=== PATIENT | female | born 1985 | race Caucasian/White ===

== ENCOUNTER 2018-01-03 06:40 | Emergency (ER) | payer SELFPAY ==
[2018-01-03] MEDS ORDERED: MORPHINE 4 MG/ML SYR ONE (07:16)
[2018-01-03] MEDS ORDERED: NA CHLORIDE 0.9% 1,000 ML ONE (07:17)
[2018-01-03] MEDS ORDERED: DIPHENHYDRAMINE 50 MG/ML VIAL ONE (07:17)
[2018-01-03] MEDS ORDERED: ONDANSETRON 4 MG/2 ML VIAL ONE (07:17)
[2018-01-03 07:19] LABS: Absolute Lymphocytes (CBC) 3.2 K/uL (0.7-4.9); Absolute Monocytes 0.6 K/uL (0.1-1.3); Absolute Neutrophil 3.3 K/uL (1.8-8.0); Basophils % 0.6 % (0-1.3); Eosinophils % 4.5 % (0-4.4); Hematocrit 40.7 % (36.0-45.0); Lymphocytes % 43.1 % (15.3-44.8); MCH 33.7 pg (27.0-35.0); MCV 98.8 fL (80-100); MPV 9.8 fL (7.6-11.3); Monocytes % 7.5 % (3.3-12.3); RBC Red Blood Cell Count 4.12 M/uL (3.86-4.86)
[2018-01-03] MEDS ORDERED: FENTANYL CITR 100 MCG/2 ML ONE (07:25)
[2018-01-03 07:42] LABS: ALT/SGPT 11 U/L (12-78); AST/SGOT 11 U/L (15-37); Albumin 3.9 g/dL (3.4-5.0); Alkaline Phosphatase 55 U/L (45-117); Amylase Level 28 U/L (25-115); BUN Blood Urea Nitrogen 10 mg/dL (7-18); Bicarbonate 26 mmol/L (21-32); Bilirubin Direct 0.1 mg/dL (0-0.2); Bilirubin Total 0.3 mg/dL (0.2-1.0); Glucose Level 92 mg/dL (74-106); Lipase 146 U/L (73-393); Potassium 3.7 mmol/L (3.5-5.1); Protein, Total 6.8 g/dL (6.4-8.2); Sodium Level 142 mmol/L (136-145)
[2018-01-03 09:24] LABS: Urine Bacteria <20 /HPF (<20); Urine RBC <5 /HPF (NONE SEEN)
[2018-01-03 09:25] LABS: Urine Culture Reflex Order NOT NEEDED
--- NOTE | 2018-01-03 09:49 | RAD REPORT ---
EXAM DESCRIPTION: CT - Abdomen Pelvis W Contrast - 01/03/2018 9:30 am CLINICAL HISTORY: Abdominal pain, constipation, back pain, history of cervical carcinoma COMPARISON: CT study November 2013 TECHNIQUE: Biphasic, helical CT imaging of the abdomen and pelvis was performed following 100 ml non -ionic IV contrast. Oral contrast was given. All CT scans are performed using dose optimization technique as appropriate and may include automated exposure control or mA/KV adjustment according to patient size. FINDINGS: No suspicious findings in the lung bases. The liver, spleen, and pancreas show no suspicious findings. Mild periportal edema pattern is present . No biliary tree dilatation. Gallbladder is not dilated. Gallstones can be occult. Symmetric renal function is seen with no hydronephrosis or suspicious renal mass. No pyelonephritis o r acute renal parenchymal process. Urinary bladder is unremarkable. Tampon is in place. Uterus and ov myranda show no suspicious findings. No gastric dilatation or wall thickening. No dilated small bowel loops. There is no appendicitis. No acute process of the colon seen. CT imaging cannot fully assess the colon. No free air or pneumatosis. Trace amounts of free fluid in the cul-de-sac are well within physiologi c limits. No abnormal mesenteric adenopathy. No hernia, mass or bulky lymphadenopathy. No adrenal ab normality. No suspicious bony findings. IMPRESSION: No appendicitis or surgically emergent finding. Assessment of the colon is limited. No acute GI process identified. No acute or BROILER CHEF OR COOK finding. No acute gallbladder or biliary tree finding. A minimal periportal edema pattern is present. This is nonspecific.
[2018-01-03] MEDS ORDERED: CEFTRIAXONE/SWI 1gm 1 GM/10 ML SYR ONE (11:16)
--- NOTE | 2018-01-03 11:37 | ER ---
Nurse's Notes [facility] Name: Marlene Bruno Age: 32 yrs Sex: Female : 1985 Arrival Date: 01/03/2018 Time: 06:42 Bed 6 Private MD: Diagnosis: Abdominal and pelvic pain Presentation: 01/03 06:50 Presenting complaint: Patient states: "I've been constipated for a week and I can't lp1 push anymore"; States pain to lower back, abdomen; States hx of constipation, denies using any OTC medications; concerned about abnormal vaginal bleeding after menstrual cycle. Transition of care: patient was not received from another setting of care. Onset of symptoms was January 03, 2018. Risk Assessment: Do you want to hurt yourself or someone else? Patient reports no desire to harm self or others. Initial Sepsis Screen: Does the patient meet any 2 criteria? No. Patient's initial sepsis screen is negative. Does the patient have a suspected source of infection? No. Patient's initial sepsis screen is negative. Care prior to arrival: None. 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 - Social history:: Smoking status: Patient uses tobacco products, smokes one pack cigarettes per day. - Ebola Screening: : No symptoms or risks identified at this time. Screenin:53 Abuse screen: Denies threats or abuse. Denies injuries from another. Nutritional lp1 screening: No deficits noted. Tuberculosis screening: No symptoms or risk factors identified. Fall Risk None identified. Assessment: 06:57 General: Appears in no apparent distress. uncomfortable, Behavior is cooperative, aa1 appropriate for age, restless. Pain: Complains of pain in back and abdomen Pain began 1 week ago. Neuro: Level of Consciousness is awake, alert, obeys commands, Oriented to person, place, time, situation, Moves all extremities. Full function Gait is steady. Respiratory: Airway is patent Respiratory effort is even, unlabored, Respiratory pattern is regular, symmetrical. GI: Abdomen is non-distended, Bowel sounds present X 4 quads. Abd is soft X 4 quads Abdomen is tender to palpation X 4 quads. Reports lower abdominal pain, upper abdominal pain, constipation. : Reports vaginal bleeding that is. EENT: No signs and/or symptoms were reported regarding the EENT system. Derm: Skin is intact, is healthy with good turgor, Skin is pink, warm \\T\\ dry. Musculoskeletal: Circulation, motion, and sensation intact. Capillary refill < 3 seconds. 07:11 General: Appears in no apparent distress. uncomfortable, slender, Behavior is sv cooperative, appropriate for age, restless. Pain: Complains of pain in low back area and abdomen Pain currently is 10 out of 10 on a pain scale. Is continuous. Neuro: Level of Consciousness is awake, alert, obeys commands, Oriented to person, place, time, situation, Moves all extremities. Full function Speech is normal. Respiratory: Respiratory effort is even, unlabored, Respiratory pattern is regular, symmetrical. GI: Abdomen is flat, non-distended, Reports lower abdominal pain, upper abdominal pain, constipation, nausea. Derm: Skin is pink, warm \\T\\ dry. Musculoskeletal: Range of motion: intact in all extremities. 07:44 Reassessment: pt finished oral contrast, CT notified. iw 08:48 Reassessment: Patient appears in no apparent distress at this time. Patient and/or sv family updated on plan of care and expected duration. Pain level reassessed. Patient is alert, oriented x 3, equal unlabored respirations, skin warm/dry/pink. Patient states symptoms have improved. 11:21 Reassessment: Patient appears in no apparent distress at this time. Patient and/or sg family updated on plan of care and expected duration. Pain level reassessed. Patient is alert, oriented x 3, equal unlabored respirations, skin warm/dry/pink. awaiting ultrasound results, awaiting new orders, pt and pt family/friend stated understanding, bed in low and locked position, srx2, pt remains on monitors at this time Patient states symptoms have improved. 12:04 Reassessment: Patient appears in no apparent distress at this time. Patient and/or sv family updated on plan of care and expected duration. Pain level reassessed. Patient is alert, oriented x 3, equal unlabored respirations, skin warm/dry/pink. Vital Signs: 06:52 BP 93 / 80; Pulse 93; Resp 18; Temp 97.6(O); Pulse Ox 100% on R/A; Weight 53.52 kg; lp1 Height 5 ft. 3 in. (160.02 cm); Pain 9/10; 07:15 BP 96 / 73; Pulse 56; Resp 18; Pulse Ox 100% ; Pain 10/10; sv 08:03 BP 105 / 78; Pulse 58; Resp 16; Pulse Ox 100% on R/A; sv 08:48 BP 97 / 69; Pulse 70; Resp 18; Pulse Ox 100% ; Pain 6/10; sv 08:58 BP 101 / 73; Pulse 59; Resp 17; Pulse Ox 99% on R/A; mh5 09:53 BP 99 / 66; Pulse 80; Resp 18; Pulse Ox 99% ; sv 11:04 BP 100 / 63; Pulse 62; Resp 17; Pulse Ox 99% on R/A; mh5 06:52 Body Mass Index 20.90 (53.52 kg, 160.02 cm) lp1 ED Course: 06:42 Patient arrived in ED. es 06:52 Triage completed. lp1 06:52 Arm band placed on right wrist. lp1 06:53 Heriberto Nj PA is PHCP. cp 06:53 Stan Núñez MD is Attending Physician. cp 06:57 Patient has correct armband on for positive identification. Bed in low position. Call aa1 light in reach. Pulse ox on. NIBP on. Warm blanket given. 06:57 Initial lab(s) drawn, by me. Inserted saline lock: 20 gauge in left antecubital area, aa1 using aseptic technique. Blood collected. 07:05 Tiffany Buchanan, EFREN is Primary Nurse. sv 07:19 Oral contrast given. kw1 08:03 Awaiting lab results, Awaiting CT Scan. sv 08:43 Urine --Ancillary (enter results) Sent. mh5 08:43 Urine Dipstick--Ancillary (enter results) Sent. mh5 08:44 Urine collected: clean catch specimen, clear. mh5 08:56 Urine Microscopic Only Sent. mh5 09:[address] via wheelchair. sv 09:31 CT Abd/Pelvis - W/Contrast In Process Unspecified. EDMS 10:42 Assist provider with pelvic exam: Set up pelvic tray. Specimens sent to lab. mh5 10:43 Wet Prep Sent. mh5 10:44 GC (GONORR/CHLAMYDIA) Probe Sent. mh5 11:04 Note: us being done portable/bedside. lc3 11:19 US Transvaginal Study (Probe) In Process Unspecified. EDMS 11:36 aWrren Serrano MD is Referral Physician. cp 12:04 IV discontinued, intact, bleeding controlled, No redness/swelling at site. Pressure sv dressing applied. Administered Medications: 07:13 Drug: NS 0.9% 1000 ml Route: IV; Rate: 1 bolus; Site: left antecubital; sv 08:00 Follow up: Response: No adverse reaction; IV Status: Completed infusion; IV Intake: sv 1000ml 07:13 Drug: Zofran 4 mg Route: IVP; Site: left antecubital; sv 08:04 Follow up: Response: No adverse reaction sv 07:15 Drug: Benadryl 25 mg Route: IVP; Site: left antecubital; sv 08:04 Follow up: Response: No adverse reaction sv 07:22 Not Given (BP-96/73): morphine 2 mg IVP once hj 07:25 Drug: fentaNYL (PF) 25 mcg Route: IVP; Site: left antecubital; sv 08:04 Follow up: Response: No adverse reaction sv 11:16 Drug: Rocephin 1 grams Route: IV; Rate: calculated rate; Site: left antecubital; sg 11:20 Follow up: Response: No adverse reaction; IV Status: Completed infusion; IV Intake: 10mlsv Intake: 08:00 IV: 1000ml; Total: 1000ml. sv 11:20 IV: 10ml; Total: 1010ml. sv Outcome: 11:36 Discharge ordered by . cp 12:04 Discharged to home ambulatory, with family. sv 12:04 Condition: stable 12:04 Discharge instructions given to patient, Instructed on discharge instructions, follow up and referral plans. medication usage, Demonstrated understanding of instructions, follow-up care, medications, Prescriptions given X 3. 12:05 Patient left the ED. sv Signatures: Dispatcher [employer] EDGA Tiffany Buchanan RN RN Amor Richard, RN RN sg Berny, Gabbi, RN RN aa1 Cici Penaloza Irene, RN RN sean Lloyd, Nicki, RN RN lp1 Heriberto Nj PA PA cp Cunningham, Laulita lc3 Martinez, Maria [facility] Kenyatta Simmons 1 Giovani Vilchis RN hj
--- NOTE | 2018-01-03 11:37 | EDPHYS ---
Physician Documentation [facility] Name: Marlene Bruno Age: 32 yrs Sex: Female : 1985 Arrival Date: 01/03/2018 Time: 06:42 Bed 6 Private MD: ED Physician Stan Núñez HPI: 01/03 07:00 This 32 yrs old Female presents to ER via Wheelchair with complaints of cp Abdominal Pain, Back Pain, Vaginal Bleeding, Diarrhea. 07:00 The patient presents with abdominal pain in the lower abdomen. cp 07:00 Onset: The symptoms/episode began/occurred gradually, and became worse today. cp Associated signs and symptoms: Pertinent positives: vaginal bleeding, constipation times 1 week, lower back pain, Pertinent negatives: fever, headache, vomiting. 07:00 Severity of pain: in the emergency department the pain is actually worse moderately. 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 - Social history:: Smoking status: Patient uses tobacco products, smokes one pack cigarettes per day. - Ebola Screening: : No symptoms or risks identified at this time. ROS: 07:05 Constitutional: Negative for body aches, chills, fever, poor PO intake. cp 07:05 Eyes: Negative for injury, pain, redness, and discharge. cp 07:05 ENT: Negative for drainage from ear(s), ear pain, sore throat, difficulty swallowing, difficulty handling secretions. 07:05 Cardiovascular: Negative for chest pain, edema, palpitations. 07:05 Respiratory: Negative for cough, shortness of breath, wheezing. 07:05 Abdomen/GI: Positive for abdominal pain, nausea, constipation, Negative for vomiting, diarrhea, black/tarry stool, rectal bleeding. 07:05 Back: Positive for pain at rest, of the low back area, Negative for injury or acute deformity, decreased range of motion. 07:05 : Positive for vaginal bleeding, Negative for urinary symptoms. 07:05 Skin: Negative for cellulitis, rash. 07:05 Neuro: Negative for altered mental status, headache, weakness. 07:05 All other systems are negative. Exam: 07:10 Constitutional: The patient appears in no acute distress, alert, awake, non-toxic, well cp developed, well nourished, uncomfortable. 07:10 Head/Face: Normocephalic, atraumatic. cp 07:10 Eyes: Periorbital structures: appear normal, Conjunctiva: normal, no exudate, no injection, Sclera: no appreciated abnormality, Lids and lashes: appear normal, bilaterally. 07:10 ENT: External ear(s): are unremarkable, Ear canal(s): are normal, clear, TM's: bulging, is not appreciated, bilaterally, dullness, bilaterally, erythema, is not appreciated, bilaterally, Nose: is normal, Mouth: Lips: moist, Oral mucosa: pink and intact, moist, Posterior pharynx: is normal, airway is patent, no erythema, no exudate, Voice: is normal. 07:10 Neck: ROM/movement: is normal, is supple, without pain, no range of motions limitations, no meningismus, no nuchal rigidity. 07:10 Chest/axilla: Inspection: normal, Palpation: is normal, no crepitus, no tenderness. 07:10 Cardiovascular: Rate: normal, Rhythm: regular. 07:10 Respiratory: the patient does not display signs of respiratory distress, Respirations: normal, no use of accessory muscles, no retractions, no splinting, no tachypnea, labored breathing, is not present, Breath sounds: are clear throughout, no decreased breath sounds, no stridor, no wheezing. 07:10 Abdomen/GI: Inspection: abdomen appears normal, Bowel sounds: active, all quadrants, Palpation: soft, in all quadrants, moderate abdominal tenderness, in the right lower quadrant and left lower quadrant, rebound tenderness, is not appreciated, voluntary guarding, is elicited in the right lower quadrant and left lower quadrant, involuntary guarding, is not appreciated. 07:10 Back: pain, that is moderate, of the low back area, ROM is painful, CVA tenderness, is absent. 07:10 Skin: cellulitis, is not appreciated, no rash present. 07:10 Neuro: Orientation: to person, place \T\ time. Mentation: lucid, able to follow commands, Cerebellar function: is grossly normal, Motor: moves all fours, strength is normal, Sensation: no obvious gross deficits. 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 Vital Signs: 06:52 BP 93 / 80; Pulse 93; Resp 18; Temp 97.6(O); Pulse Ox 100% on R/A; Weight 53.52 kg; lp1 Height 5 ft. 3 in. (160.02 cm); Pain 9/10; 07:15 BP 96 / 73; Pulse 56; Resp 18; Pulse Ox 100% ; Pain 10/10; sv 08:03 BP 105 / 78; Pulse 58; Resp 16; Pulse Ox 100% on R/A; sv 08:48 BP 97 / 69; Pulse 70; Resp 18; Pulse Ox 100% ; Pain 6/10; sv 08:58 BP 101 / 73; Pulse 59; Resp 17; Pulse Ox 99% on R/A; mh5 09:53 BP 99 / 66; Pulse 80; Resp 18; Pulse Ox 99% ; sv 11:04 BP 100 / 63; Pulse 62; Resp 17; Pulse Ox 99% on R/A; mh5 06:52 Body Mass Index 20.90 (53.52 kg, 160.02 cm) lp1 MDM: 06:53 Patient medically screened. cp 08:00 Differential diagnosis: Ectopic , Endometriosis, gastritis, Ovarian Torsion, cp Pelvic Inflammatory Disease, Pyelonephritis, Tubal Ovarian Abcess, Ureterolithiasis, urinary tract infection. 11:35 Data reviewed: vital signs, nurses notes, lab test result(s), radiologic studies, CT cp scan, ultrasound. 11:35 Counseling: I had a detailed discussion with the patient and/or guardian regarding: the cp historical points, exam findings, and any diagnostic results supporting the discharge/admit diagnosis, lab results, radiology results, the need for outpatient follow up, an OB/Gyne specialist, to return to the emergency department if symptoms worsen or persist or if there are any questions or concerns that arise at home. Response to treatment: the patient's symptoms have markedly improved after treatment, and as a result, I will discharge patient. Special discussion: Based on the patient's Hx, exam, and Dx evaluation, there is no indication for emergent surgery or inpatient Tx. It is understood by the patient/guardian that if the Sx's persist or worsen they need to return immediately for re-evaluation. 01/03 07:02 Order name: Amylase, Serum; Complete Time: 08:24 01/03 07:02 Order name: Basic Metabolic Panel; Complete Time: 08:24 01/03 08:24 Interpretation: Normal except: CL 113. 01/03 07:02 Order name: CBC with Diff; Complete Time: 07:23 01/03 07:23 Interpretation: Normal except: EOSINOPHIL % 4.5. 01/03 07:02 Order name: Creatinine for Radiology; Complete Time: 08:24 01/03 07:02 Order name: Hepatic Function; Complete Time: 08:24 01/03 08:24 Interpretation: Normal except: AST 11; ALT 11. 01/03 07:02 Order name: Lipase; Complete Time: 08:24 01/03 07:02 Order name: Urine Microscopic Only; Complete Time: 10:00 01/03 10:00 Interpretation: Normal except: SQEPI 5-10. 01/03 07:02 Order name: CT Abd/Pelvis - W/Contrast; Complete Time: 10:00 01/03 10:01 Interpretation: Report reviewed. 01/03 08:38 Order name: Urine Dipstick--Ancillary (enter results) 01/03 08:38 Order name: Urine --Ancillary (enter results) 01/03 10:04 Order name: GC (GONORR/CHLAMYDIA) Probe 01/03 10:04 Order name: Wet Prep; Complete Time: 11:30 01/03 10:40 Order name: US Transvaginal Study (Probe) 01/03 06:53 Order name: Urine Dipstick-Ancillary (obtain specimen); Complete Time: 08:44 01/03 06:53 Order name: Urine Test (obtain specimen); Complete Time: 08:44 01/03 07:02 Order name: IV Saline Lock; Complete Time: 07:05 cp 01/03 07:02 Order name: Labs collected and sent; Complete Time: 07:05 cp 01/03 10:04 Order name: Pelvic Exam Setup; Complete Time: 10:19 cp Administered Medications: 07:13 Drug: NS 0.9% 1000 ml Route: IV; Rate: 1 bolus; Site: left antecubital; sv 08:00 Follow up: Response: No adverse reaction; IV Status: Completed infusion; IV Intake: sv 1000ml 07:13 Drug: Zofran 4 mg Route: IVP; Site: left antecubital; sv 08:04 Follow up: Response: No adverse reaction sv 07:15 Drug: Benadryl 25 mg Route: IVP; Site: left antecubital; sv 08:04 Follow up: Response: No adverse reaction sv 07:22 Not Given (BP-96/73): morphine 2 mg IVP once hj 07:25 Drug: fentaNYL (PF) 25 mcg Route: IVP; Site: left antecubital; sv 08:04 Follow up: Response: No adverse reaction sv 11:16 Drug: Rocephin 1 grams Route: IV; Rate: calculated rate; Site: left antecubital; sg 11:20 Follow up: Response: No adverse reaction; IV Status: Completed infusion; IV Intake: 10mlsv Disposition: 01/03/18 11:36 Discharged to Home. Impression: Abdominal and pelvic pain. - Condition is Stable. - Discharge Instructions: Pelvic Pain, Female. - Prescriptions for Doxycycline Hyclate 100 mg Oral Tablet - take 1 tablet by ORAL route every 12 hours; 20 tablet. Metronidazole 500 mg Oral Tablet - take 1 tablet by ORAL route every 8 hours; 30 tablet. Diclofenac Sodium 75 mg Oral Tablet, Delayed Release (E.C.) - take 1 tablet by ORAL route 2 times per day As needed; 20 tablet. - Medication Reconciliation Form, Thank You Letter, Antibiotic Education, Prescription Opioid Use form. - Follow up: Warren Serrano MD; When: 2 - 3 days; Reason: Recheck today's complaints. - Problem is new. - Symptoms have improved. Signatures: Dispatcher [employer] Tiffany Obrien RN RN Amor Fountain RN RN Nicki Palencia RN RN lp1 Giovani Vilchis RN RN hj Heriberto Nj PA PA cp Corrections: (The following items were deleted from the chart) 12:05 11:36 01/03/2018 11:36 Discharged to Home. Impression: Abdominal and pelvic pain. sv Condition is Stable. Forms are Medication Reconciliation Form, Thank You Letter, Antibiotic Education, Prescription Opioid Use. Follow up: Warren Serrano; When: 2 - 3 days; Reason: Recheck today's complaints. Problem is new. Symptoms have improved. cp
--- NOTE | 2018-01-03 12:05 | RAD REPORT ---
EXAM DESCRIPTION: US - Transvaginal Study Probe - 01/03/2018 11:23 am CLINICAL HISTORY: lower abdominal pain Pelvic pain. COMPARISON: TRANSVAGINAL STUDY PROBE dated 11/09/2013 FINDINGS: The uterus is normal in size, shape and echotexture. The uterus measures 8.5 x 5.0 x 3.9 c m. The endometrial stripe measures 4 mm, normal. Both ovaries are normal in size, shape and echotexture. The right ovary measures 2.5 x 2.1 x 2.0 cm. The left ovary measures 3.8 x 1.9 x 1.7 cm. No ovarian or parovarian lesions. No adnexal masses. Normal Doppler blood flow was demonstrated to both ovaries. No significant pelvic ascites. IMPRESSION: Unremarkable study.
[2018-01-03 16:04] LABS: Urine Blood NEGATIVE (NEG); Urine Glucose NEGATIVE (NEG); Urine Protein NEGATIVE (NEG)
[2018-01-05 07:06] LABS: C.trachomatis RNA,TMA Not Detected (Not Detected)
== END 2018-01-03 12:05 | disposition home or self-care (01) ==
LOC: ER 06:40
DX: R10.9 Unspecified abdominal pain (principal); R10.2 Pelvic and perineal pain; M54.9 Dorsalgia, unspecified; F17.210 Nicotine dependence, cigarettes, uncomplicated; Z88.2 Allergy status to sulfonamides
CPT/HCPCS: 36415; 74177; 76830; 80048; 80076; 81003; 81015; 81025; 82150; 83690; 85025; 87210; 87490; 87590; 96361; 96374; 96375; 99285; J0696; J2405; J3010; J7030; Q9967

== ENCOUNTER 2019-11-21 18:59 | Emergency (ER) | payer OTHER, SELFPAY ==
--- NOTE | 2019-11-21 19:51 | RAD REPORT ---
EXAM DESCRIPTION: CT - Head Brain Wo Cont - 11/21/2019 7:42 pm CLINICAL HISTORY: HEADACHE Headache, drowsiness COMPARISON: HEAD BRAIN W O CONTRAST dated 07/20/2014; HEAD BRAIN W O CONTRAST dated 11/24/2010 TECHNIQUE: All CT scans are performed using dose optimization technique as appropriate and may inclu de automated exposure control or mA/KV adjustment according to patient size. FINDINGS: No intracranial hemorrhage, hydrocephalus or extra-axial fluid collection.No areas of brai n edema or evidence of midline shift. The paranasal sinuses and mastoids are clear. The calvarium is intact. IMPRESSION: No acute intracranial abnormality.
[2019-11-21] MEDS ORDERED: NA CHLORIDE 0.9% 1,000 ML ONE (20:11)
[2019-11-21] MEDS ORDERED: MEPERIDINE HCL 50 MG/ML ONE (20:11)
[2019-11-21] MEDS ORDERED: PROMETHAZINE INJ 25 MG/ML AMP ONE (20:11)
[2019-11-21 20:41] LABS: Absolute Lymphocytes (CBC) 2.7 K/uL (0.7-4.9); Basophils % 1.1 % (0-1.3); Hematocrit 44.4 % (36.0-45.0); Lymphocytes % 24.5 % (15.3-44.8); MPV 9.7 fL (7.6-11.3); RBC Red Blood Cell Count 4.39 M/uL (3.86-4.86)
[2019-11-21 20:46] LABS: BUN Blood Urea Nitrogen 9 mg/dL (7-18); Bicarbonate 26 mmol/L (21-32); Glucose Level 92 mg/dL (74-106); Potassium 3.8 mmol/L (3.5-5.1); Sodium Level 141 mmol/L (136-145)
--- NOTE | 2019-11-21 22:04 | EDPHYS ---
Physician Documentation [facility] Name: Marlene Bruno Age: 34 yrs Sex: Female : 1985 Arrival Date: 11/21/2019 Time: 19:02 Bed 17 Private MD: ED Physician Mickey Lawrence HPI: 11/20 20:00 This 34 yrs old Female presents to ER via Ambulatory with complaints of rn Headache, Nausea. 20:00 The patient complains of pain to the left side of head. The patient describes the rn headache as aching. 20:01 Onset: The symptoms/episode began/occurred 1 day(s) ago. rn 20:01 Severity of symptoms: At its worst the pain was moderate, in the emergency department rn the pain is unchanged. Headache History: The patient has had previous headaches and this one is similar to previous episodes. The symptoms are alleviated by nothing. the symptoms are aggravated by nothing. The patient has experienced similar episodes in the past. Reports headache and nausea, began yesterday, + hx of migraines but hasn't had them in a while, no injury, no fever, no trauma, no focal neuro complaint. No chest pain/sob/abd pain. Reports has implanon, not . Vision ok. No neck pain.. Historical: - Allergies: 19:10 Sulfa (Sulfonamide Antibiotics); ll1 - PMHx: 19:10 cervical cancer; ll1 - PSHx: 19:10 ; ll1 - Social history:: Smoking status: Patient reports the use of cigarette tobacco products, smokes one-half pack cigarettes per day, Patient/guardian denies using alcohol, street drugs. - Family history:: not pertinent. - Hospitalizations: : No recent hospitalization is reported. ROS: 20:01 Constitutional: Negative for fever, chills, and weight loss, Eyes: Negative for injury, rn pain, redness, and discharge, Cardiovascular: Negative for chest pain, palpitations, and edema, Respiratory: Negative for shortness of breath, cough, wheezing, and pleuritic chest pain, Abdomen/GI: Negative for abdominal pain, diarrhea, and constipation, MS/Extremity: Negative for injury and deformity, Skin: Negative for injury, rash, and discoloration, Neuro: Negative for weakness, numbness, tingling, and seizure. Exam: 20:01 Constitutional: This is a well developed, well nourished patient who is awake, alert, rn seems uncomfortable, ambulatory to room. Head/Face: Normocephalic, atraumatic. Eyes: Pupils equal round and reactive to light, extra-ocular motions intact. Lids and lashes normal. Conjunctiva and sclera are non-icteric and not injected. Cornea within normal limits. Periorbital areas with no swelling, redness, or edema. ENT: Oropharynx with no redness, swelling, or masses, exudates, or evidence of obstruction, uvula midline. Mucous membranes moist. Neck: Trachea midline, no thyromegaly or masses palpated, and no cervical lymphadenopathy. Supple, full range of motion without nuchal rigidity, or vertebral point tenderness. No Meningismus. Cardiovascular: Regular rate and rhythm. No pulse deficits. Respiratory: No increased work of breathing, no retractions or nasal flaring. Skin: Warm, dry with normal turgor. Normal color with no rashes, no lesions, and no evidence of cellulitis. MS/ Extremity: Pulses equal, no cyanosis. Neurovascular intact. Full, normal range of motion. Equal circumference. Neuro: Awake and alert, GCS 15, oriented to person, place, time, and situation. Cranial nerves II-XII grossly intact. Motor strength 5/5 in all extremities. Sensory grossly intact. Cerebellar exam normal. Normal gait. Vital Signs: 19:08 BP 117 / 84; Pulse 90; Resp 17; Temp 97.2; Pulse Ox 99% ; Pain 10/10; ll1 20:15 BP 112 / 85; Pulse 81; Resp 16; Pulse Ox 97% ; ah 21:00 BP 119 / 75; Pulse 71; Resp 13; Pulse Ox 100% ; ah 22:00 BP 109 / 65; Pulse 74; Resp 16; Pulse Ox 98% ; ah [place] Coma Score: 22:01 Eye Response: spontaneous(4). Verbal Response: oriented(5). Motor Response: obeys rn commands(6). Total: 15. MDM: 19:25 Patient medically screened. rn 22:01 Differential diagnosis: migraine, neoplasm, tension headache, vasomotor headache, viral rn syndrome. Data reviewed: vital signs, nurses notes, lab test result(s), radiologic studies, CT scan, and as a result, I will discharge patient. Counseling: I had a detailed discussion with the patient and/or guardian regarding: the historical points, exam findings, and any diagnostic results supporting the discharge/admit diagnosis, lab results, radiology results, the need for outpatient follow up, to return to the emergency department if symptoms worsen or persist or if there are any questions or concerns that arise at home. Response to treatment: the patient's symptoms have markedly improved after treatment, sleeping comfortably., and as a result, I will discharge patient. Special discussion: I discussed with the patient/guardian in detail that at this point there is no indication for admission to the hospital. It is understood, however, that if the symptoms persist or worsen the patient needs to return immediately for re-evaluation. Based on the history and exam findings, there is no indication for further emergent testing or inpatient evaluation. I discussed with the patient/guardian the need to see the neurologist for further evaluation of the symptoms. ED course: Pt with neg CT head, normal neuro exam, neg procal/flu/strep mono, is sleeping, will dc home with neuro f/u for migraine/headache.. 11/20 19:30 Order name: CBC with Diff; Complete Time: 21:20 11/20 19:30 Order name: Basic Metabolic Panel; Complete Time: 21:11/20 19:30 Order name: Flu; Complete Time: :11/20 19:30 Order name: [place] Screen Profile; Complete Time: 21:20 11/20 19:30 Order name: Procalcitonin; Complete Time: :38 11/20 19:30 Order name: IV Start; Complete Time: 20:11/20 19:30 Order name: CT Head Brain wo Cont; Complete Time: 20:00 11/20 19:30 Order name: Strep; Complete Time: :11/20 21:37 Order name: Throat Culture EDMS Administered Medications: 20:15 Drug: NS 0.9% 1000 ml Route: IV; Rate: 1000 ml; Site: right hand; 22:06 Follow up: Response: No adverse reaction; IV Status: Completed infusion 20:15 Drug: Phenergan 12.5 mg Route: IVP; Site: right hand; 22:06 Follow up: Response: No adverse reaction 20:15 Drug: Demerol 25 mg Route: IVP; Site: right hand; 22:06 Follow up: Response: No adverse reaction 22:17 Drug: Decadron - Dexamethasone 10 mg Route: IVP; Site: right hand; Disposition: 11/21/19 22:03 Discharged to Home. Impression: Migraine, Vomiting, unspecified. - Condition is Stable. - Discharge Instructions: Migraine Headache, Nausea and Vomiting, Adult. - Prescriptions for Zofran ODT 4 mg Oral tablet,disintegrating - place 1 tablet by TRANSLINGUAL route every 8 hours As needed; 20 tablet. - Medication Reconciliation Form, Thank You Letter, Antibiotic Education, Prescription Opioid Use, Work release form form. - Follow up: Jhony Fox MD; When: As needed; Reason: Recheck today's complaints, Re-evaluation by your physician. - Problem is new. - Symptoms have improved. Signatures: Dispatcher [employer] EDMS Mickey Lawrence MD MD rn Calcote, Vanessa, RN RN vc Harris, Amy, RN RN ah Lewis, Lynsay, RN RN ll1 Corrections: (The following items were deleted from the chart) 20:03 20:01 Constitutional: Negative for fever, chills, and weight loss, Eyes: Negative for rn injury, pain, redness, and discharge, Cardiovascular: Negative for chest pain, palpitations, and edema, Respiratory: Negative for shortness of breath, cough, wheezing, and pleuritic chest pain, Abdomen/GI: Negative for abdominal pain, diarrhea, and constipation, MS/Extremity: Negative for injury and deformity, Skin: Negative for injury, rash, and discoloration, Neuro: Negative for weakness, numbness, tingling, and seizure, 22:09 19:30 Urine Test ordered. marcelo 22:10 19:30 Urine Dipstick-Ancillary ordered. [facility] 22:24 22:03 11/21/2019 22:03 Discharged to Home. Impression: Migraine; Vomiting, unspecified. vc Condition is Stable. Forms are Medication Reconciliation Form, Thank You Letter, Antibiotic Education, Prescription Opioid Use. Follow up: Jhony Fox; When: As needed; Reason: Recheck today's complaints, Re-evaluation by your physician. Problem is new. Symptoms have improved. rn
--- NOTE | 2019-11-21 22:04 | ER ---
Nurse's Notes [facility] Name: Marlene Bruno Age: 34 yrs Sex: Female : 1985 Arrival Date: 11/21/2019 Time: 19:02 Bed 17 Private MD: Diagnosis: Migraine;Vomiting, unspecified Presentation: 11/20 19:08 Chief complaint: Patient states: OLIVIER with N/V for 1 day. No fever when checked. ll1 Coronavirus screen: Proceed with normal triage. Patient denies a cough. Patient denies shortness of breath or difficulty breathing. Patient denies measured and/or subjective temperature greater than 100.4F prior to today's visit. Patient denies travel on a cruise ship or to a country the [facility] currently lists as an affected area. Patient denies contact with known and/or suspected case of COVID-19. Ebola Screen: Patient denies travel to an Ebola-affected area in the 21 days before illness onset. Initial Sepsis Screen: Does the patient meet any 2 criteria? No. Patient's initial sepsis screen is negative. Risk Assessment: Do you want to hurt yourself or someone else? Patient reports no desire to harm self or others. Onset of symptoms was November 21, 2019. 19:08 Method Of Arrival: Ambulatory ll1 19:08 Acuity: RICK 3 ll1 Historical: - Allergies: 19:10 Sulfa (Sulfonamide Antibiotics); ll1 - PMHx: 19:10 cervical cancer; ll1 - PSHx: 19:10 ; ll1 - Social history:: Smoking status: Patient reports the use of cigarette tobacco products, smokes one-half pack cigarettes per day, Patient/guardian denies using alcohol, street drugs. - Family history:: not pertinent. - Hospitalizations: : No recent hospitalization is reported. Screenin:32 Abuse screen: Denies threats or abuse. Nutritional screening: No deficits noted. Tuberculosis screening: No symptoms or risk factors identified. Fall Risk None identified. Assessment: 19:45 General: Appears uncomfortable, Behavior is cooperative, appropriate for age, Reports ah feeling ill for 12-24 hours. Pain: Complains of pain in headache. Pain: Pain currently is 9 out of 10 on a pain scale. Quality of pain is described as dull, throbbing, Is continuous. Neuro: Level of Consciousness is awake, alert, obeys commands, Oriented to person, place, time, situation, Appropriate for age. Neuro: Reports headache in left parietal area, since yesterday. Cardiovascular: Capillary refill < 3 seconds Patient's skin is warm and dry. Respiratory: Airway is patent Respiratory effort is even, unlabored. GI: Pt is actively vomiting bile, Bowel sounds present X 4 quads. Reports nausea, vomiting. Derm: Skin is intact, is healthy with good turgor. 20:15 Reassessment: Pt requests to wait a little while before she is swabbed for strep and ah flu and let the medication kick in. She states that she is too nauseated at this time. Vital Signs: 19:08 BP 117 / 84; Pulse 90; Resp 17; Temp 97.2; Pulse Ox 99% ; Pain 10/10; ll1 20:15 BP 112 / 85; Pulse 81; Resp 16; Pulse Ox 97% ; ah 21:00 BP 119 / 75; Pulse 71; Resp 13; Pulse Ox 100% ; 22:00 BP 109 / 65; Pulse 74; Resp 16; Pulse Ox 98% ; [place] Coma Score: 22:01 Eye Response: spontaneous(4). Verbal Response: oriented(5). Motor Response: obeys rn commands(6). Total: 15. ED Course: 19:02 Patient arrived in ED. as 19:09 Triage completed. ll1 19:10 Arm band placed on Patient placed in an exam room, on a stretcher. ll1 19:25 Mickey Lawrence MD is Attending Physician. rn 19:34 Peggy Ochoa RN is Primary Nurse. 19:42 CT Head Brain wo Cont In Process Unspecified. EDMS 20:15 Initial lab(s) drawn, by pr, sent to lab. Inserted saline lock: 22 gauge in right hand, jp3 using aseptic technique. Blood collected. Patient maintains SpO2 saturation greater than 95% on room air. 20:32 Patient has correct armband on for positive identification. Bed in low position. Call light in reach. Side rails up X 1. Pulse ox on. NIBP on. 22:02 Jhony Fox MD is Referral Physician. rn Administered Medications: 20:15 Drug: NS 0.9% 1000 ml Route: IV; Rate: 1000 ml; Site: right hand; 22:06 Follow up: Response: No adverse reaction; IV Status: Completed infusion 20:15 Drug: Phenergan 12.5 mg Route: IVP; Site: right hand; 22:06 Follow up: Response: No adverse reaction 20:15 Drug: Demerol 25 mg Route: IVP; Site: right hand; 22:06 Follow up: Response: No adverse reaction 22:17 Drug: Decadron - Dexamethasone 10 mg Route: IVP; Site: right hand; Outcome: 22:03 Discharge ordered by . rn 22:24 Patient left the ED. vc Signatures: Dispatcher [employer] Annie Robbins Roman, MD MD rn Pisarski, Jacob jp3 Alicia Matute RN RN vc Harris, Amy, RN RN ah Lewis, Lynsay, RN RN ll1
[2019-11-21] MEDS ORDERED: dexAMETHasone 10 MG/ML VIAL ONE (22:17)
[2019-11-21 22:36] VITALS: TEMP 97.2
[2019-11-21 22:41] VITALS: BP 109/65; O2SAT 98
== END 2019-11-21 22:24 | disposition home or self-care (01) ==
LOC: ER 18:59
DX: G43.909 Migraine, unspecified, not intractable, without status migrainosus (principal); F17.210 Nicotine dependence, cigarettes, uncomplicated; Z85.41 Personal history of malignant neoplasm of cervix uteri; Z88.2 Allergy status to sulfonamides
CPT/HCPCS: 96361; 87070; 85025; 80048; 36415; 86308; 87081; 84145; 87804 ×2; 70450; 96375; 96374; 99284; J2550; J1100; J2175; J7030